=== PATIENT | female | born 1945 | race Caucasian/White ===

== ENCOUNTER 2022-10-19 10:12 | Outpatient (CLI) | payer MEDICARE, OTHER, SELFPAY | END 2022-10-19 10:13 | disposition home or self-care (01) | LOC: INJ CL 10:15 | PROVIDERS: PCP Nurse Practitioner Family; Visit Provider Family Medicine | DX: M54.16 Radiculopathy, lumbar region (principal); M51.36 Other intervertebral disc degeneration, lumbar region | CPT/HCPCS: 62323; J0702; Q9966 ==